=== PATIENT | male | born 1960 | race Caucasian/White ===

== ENCOUNTER → 2019-10-31 | Outpatient (CLI) | payer OTHER ==
[~2019-10-31] MED LIST: ASPIR 8181 MG PO; HYDROCODONE-AP1 EAC6 PO
== END ==
LOC: CAT 08:19
PROVIDERS: ATTEND Family Medicine
DX: Z13.6 Encounter for screening for cardiovascular disorders (principal); I25.10 Atherosclerotic heart disease of native coronary artery without angina pectoris; E78.00 Pure hypercholesterolemia, unspecified